=== PATIENT | female | born 1995 | race Hispanic/Latino ===

== ENCOUNTER 2018-04-09 00:01 | Emergency (ER) | payer OTHER ==
[2018-04-09 00:04] VITALS: O2SAT 100
[2018-04-09 00:07] VITALS: TEMP 97.5
[2018-04-09] MEDS ORDERED: Sodium Chloride 0.9% 1,000 ML IV STA (00:18)
--- NOTE | 2018-04-09 00:27 | ED PDOC ---
Arrival/HPI - General Historian: Patient - History of Present Illness Narrative History of Present Illness (Text): 04/09/18 00:38 22 y/o female with PMH of anxiety and anemia who presents to the ED with parents c/o palpitations and shortness of breath x 2 hours. Pt was resting at home after dinner when she began to feel lightheaded and had visual changes with associated "heart racing" and shortness of breath. Pt states the symptoms became worse when she got in the car to come to the ED. She has had episodes like this before, but never this severe. She was seen by Dr. Barone a few days ago where bloodwork revealed anemia with hgb of 8.7 according to pt and was referred to hematology. Abisai also prescribed Klonopin and Prozac for anxiety, which she refuses to take. LMP middle of last month. No risk factors for PE/DVT. Pt currently complaining of lightheadedness and shaking. Denies fever, chills, chest pain, syncope, throat swelling, sore throat, rhinorrhea, abdominal pain, nausea, vomiting, diarrhea, dark stools, urinary symptoms. <Carlie Mcdermott - Last Filed: 04/09/18 01:57> <Judd Thornton - Last Filed: 04/09/18 04:09> - General Chief Complaint: Shortness Of Breath Time Seen by Provider: 04/09/18 00:05 Past Medical History - Provider Review Nursing Documentation Reviewed: Yes - Infectious Disease Hx of Infectious Diseases: None - Reproductive Menopause: No - Cardiac Hx Cardiac Disorders: No - Pulmonary Hx Respiratory Disorders: No - Neurological Hx Neurological Disorder: No - HEENT Hx HEENT Disorder: No - Renal Hx Renal Disorder: No - Endocrine/Metabolic Hx Endocrine Disorders: No - Hematological/Oncological Hx Blood Disorders: No - Integumentary Hx Dermatological Disorder: No - Musculoskeletal/Rheumatological Hx Musculoskeletal Disorders: No - Gastrointestinal Hx Gastrointestinal Disorders: No - Genitourinary/Gynecological Hx Genitourinary Disorders: No - Psychiatric Hx Psychophysiologic Disorder: No Hx Substance Use: No <Carlie Mcdermott - Last Filed: 04/09/18 01:57> Family/Social History - Physician Review Nursing Documentation Reviewed: Yes Family/Social History: No Known Family HX Smoking Status: Never Smoked Hx Alcohol Use: No Hx Substance Use: No <Carlie Mcdermott - Last Filed: 04/09/18 01:57> Allergies/Home Meds <Carlie Mcdermott - Last Filed: 04/09/18 01:57> <Judd Thornton - Last Filed: 04/09/18 04:09> Allergies/Adverse Reactions: Allergies No Known Allergies Allergy (Verified 04/09/18 00:08) Home Medications: Home Meds Medication Instructions Recorded Confirmed RX: No Known Home Med 04/09/18 04/09/18 Review of Systems - Physician Review All systems were reviewed & negative as marked: Yes - Review of Systems Constitutional: Normal. absent: Fevers Eyes: Vision Changes ENT: absent: Tinnitus, Voice Changes, Sore Throat, Rhinorrhea, Epistaxis, Sinus Congestion Respiratory: SOB. absent: Cough, Sputum, Wheezing Cardiovascular: Normal. absent: Chest Pain, Palpitations, Edema, Calf Pain, Syncope Gastrointestinal: Normal. absent: Abdominal Pain, Constipation, Diarrhea, Nausea, Vomiting, Appetite Changes Genitourinary Female: Normal. absent: Dysuria, Frequency, Vaginal Bleeding, Vaginal Discharge Musculoskeletal: Normal, Myalgias (paraspinal cervical). absent: Arthralgias, Back Pain, Neck Pain Skin: Normal. absent: Rash Neurological: Headache, Dizziness. absent: Focal Weakness, Gait Changes, Speech Changes, Facial Droop, Disequilibrium, Seizure Endocrine: absent: Diaphoresis Hemo/Lymphatic: absent: Adenopathy Psychiatric: Anxiety. absent: Suicidal Ideation <Carlie Mcdermott - Last Filed: 04/09/18 01:57> Physical Exam Vital Signs Reviewed: Yes Vital Signs Temp Pulse Resp BP Pulse Ox 04/09/18 00:07 89 04/09/18 00:04 97.5 F L 101 H 18 135/85 100 Temperature: Afebrile Blood Pressure: Normal Pulse: Tachycardic (anxiety) Respiratory Rate: Normal Appearance: Positive for: Well-Appearing, Non-Toxic, Comfortable Pain Distress: None Mental Status: Positive for: Alert and Oriented X 3, other (anxious) Finger Stick Blood Glucose: 107 - Systems Exam Head: Present: Atraumatic, Normocephalic Pupils: Present: PERRL Extroacular Muscles: Present: EOMI Conjunctiva: Present: Normal Mouth: Present: Moist Mucous Membranes Pharnyx: Present: Normal. No: ERYTHEMA, EXUDATE Neck: Present: Normal Range of Motion. No: MIDLINE TENDERNESS, Paraspinal Tenderness Respiratory/Chest: Present: Clear to Auscultation, Good Air Exchange. No: Re spiratory Distress, Accessory Muscle Use Cardiovascular: Present: Regular Rate and Rhythm, Normal S1, S2, Peripheal Pulses Present. No: Murmurs Abdomen: No: Tenderness, Distention, Peritoneal Signs Back: Present: Normal Inspection. No: Midline Tenderness, Paraspinal Tenderness Upper Extremity: Present: Normal Inspection, Normal ROM, NORMAL PULSES, Capillary Refill < 2s. No: Cyanosis, Edema Lower Extremity: Present: Normal Inspection, NORMAL PULSES, Normal ROM, Capilla ry Refill < 2 s. No: Edema Neurological: Present: GCS=15, CN II-XII Intact, Speech Normal, Motor Func Grossly Intact, Normal Sensory Function, Normal Cerebellar Funct, Gait Normal, Memory Normal Skin: Present: Warm, Dry, Normal Color. No: Rashes Lymphatic: No: Cervical Adenopathy Psychiatric: Present: Alert, Oriented x 3, Anxious <Carlie Mcdermott - Last Filed: 04/09/18 01:57> Vital Signs Temp Pulse Resp BP Pulse Ox 04/09/18 02:03 82 16 108/51 L 100 04/09/18 00:10 18 100 04/09/18 00:07 89 04/09/18 00:04 97.5 F L 101 H 18 135/85 100 <Judd Thornton - Last Filed: 04/09/18 04:09> Medical Decision Making ED Course and Treatment: 04/09/18 00:27 22 y/o female with PMH of anxiety and anemia who presents to the ED with parents c/o palpitations and shortness of breath x 2 hours. Pt was resting at home after dinner when she began to feel lightheaded and had visual changes with associated "heart racing" and shortness of breath. Pt states the symptoms became worse when she got in the car to come to the ED. She has had episodes like this before, but never this severe. She was seen by Dr. Barone a few days ago where bloodwork revealed anemia with hgb of 8.7 according to pt and was referred to hematology. Abisai also prescribed Klonopin and Prozac for anxiety, which she refuses to take. LMP middle of last month. No risk factors for PE/DVT. Pt currently complaining of lightheadedness and shaking. Denies fever, chills, chest pain, syncope, cough, throat swelling, sore throat, rhinorrhea, abdominal pain, nausea, dark stools, vomiting, urinary symptoms, calf pain, calf swelling, vaginal bleeding. Physical exam: tachycardia. visibly anxious. Normal cardiac, pulm, abdominal, neuro exams. plan -ekg -cxr -cbc, cmp, troponin -UA -IVF -0.25mg PO xanax 04/09/18 00:45 Pt continues to feel anxious immediately after xanax. Mother extremely worried. Told pt to let the medicine work while we do her bloodwork. turned on tv, gave pt a juice. will get glucose fingerstick - 107 04/09/18 01:[address] Thornton: rate 103, sinus tachycardia, no t wave inversions or st elevations 04/09/18 01:14 CBC: hgb 8.5, hct 30.5 -microcytic anemia CMP: wnl CXR: read by me and Dr. Thornton - no acute process 04/09/18 01:57 Pt feels much better, vital signs stable. Pt ambulated to bathroom without difficulty Dr. Thornton recommends pt discharge Impression: Microcytic anemia, vasovagal episode Plan: Increase fluid intake to stay hydrated Continue to take vitamins Followup with tilting saw operator within 2 days Followup with primary doctor within 2 days Return if symptoms persist or worsen Plan discussed with pt and family who agree and understand. Pt comfortable with discharge home. Results and EKG printed for pt. Re-evaluation Time: 01:14 Reassessment Condition: Unchanged - Lab Interpretations I have reviewed the lab results: Yes Interpretation: Abnormal lab values - RAD Interpretation Radiology Orders: 04/09/18 00:17 CHEST PORTABLE [RAD] Stat House Piping Inspector: ED Physician - EKG Interpretation Interpreted by ED Physician: Yes (Rate 103, sinus tachycardia, no t wave inversions) Type: 12 lead EKG - Medication Orders Current Medication Orders: Alprazolam (Xanax) 0.25 mg PO STAT STA; Protocol Stop: 04/09/18 00:22 Sodium Chloride (Sodium Chloride 0.9%) 1,000 mls @ 999 mls/hr IV .Q1H1M STA Stop: 04/09/18 01:18 <Carlie Mcdermott - Last Filed: 04/09/18 01:57> - Lab Interpretations Lab Results: 04/09/18 00:25 04/09/18 00:25 Lab Results 04/09/18 01:03: POC Glucose (mg/dL) 107 04/09/18 00:25: Sodium 139, Potassium 3.9, Chloride 104, Carbon Dioxide 26, Anion Gap 14, BUN 10, Creatinine 0.7, Est GFR ( Amer) > 60, Est GFR (Non- Af Amer) > 60, Random Glucose 104, Calcium 9.4, Total Bilirubin 0.3, AST 24, ALT 11, Alkaline Phosphatase 59, Troponin I < 0.01, Total Protein 8.4 H, Albumin 4.6, Globulin 3.8, Albumin/Globulin Ratio 1.2 04/09/18 00:25: WBC 6.6, RBC 4.85, Hgb 8.5 L, Hct 30.5 L, MCV 62.9 L, MCH 17.5 L , MCHC 27.9 L, RDW 19.3 H, Plt Count 239, Gran % 39.4 L, Lymph % (Auto) 50.1 H, [place] % (Auto) 8.3 H, Eos % (Auto) 1.7, Baso % (Auto) 0.5, Gran # 2.61, Lymph # (Auto) 3.3, [place] # (Auto) 0.6, Eos # (Auto) 0.1, Baso # (Auto) 0.03 - RAD Interpretation Radiology Orders: 04/09/18 00:17 CHEST PORTABLE [RAD] Stat - Medication Orders Current Medication Orders: Discontinued Medications Alprazolam (Xanax) 0.25 mg PO STAT STA; Protocol Stop: 04/09/18 00:22 Last Admin: 04/09/18 00:38 Dose: 0.25 mg Sodium Chloride (Sodium Chloride 0.9%) 1,000 mls @ 999 mls/hr IV .Q1H1M STA Stop: 04/09/18 01:18 Last Admin: 04/09/18 00:38 Dose: 999 mls/hr eMAR Start Stop Document 04/09/18 00:38 JOL (Rec: 04/09/18 00:38 [facility] [id number] Intravenous Solution Start Date 04/09/18 Start Time 00:38 <HillaryJudd - Last Filed: 04/09/18 04:09> Wells Criteria for PE - Wells Criteria for Pulmonary Embolism Clinical Signs and Symptoms of DVT: No P.E is #1 Diagnosis, or Equally Likely: No Heart Rate >100: Yes Immobilization at least 3 days;Surgery previous 4 weeks: No Previous, objectively diagnosed PE or DVT: No Hemoptysis: No Malignancy w/treatment within 6 months, or palliative: No Total Score: 1.5 <LulabradCarlie - Last Filed: 04/09/18 01:57> - PA / COVERSTITCH ELASTIC ATTACHER / Resident Statement MD/DO has reviewed & agrees with the documentation as recorded. <HillaryJudd - Last Filed: 04/09/18 04:09> Disposition/Present on Arrival - Present on Arrival Any Indicators Present on Arrival: No History of DVT/PE: No History of Uncontrolled Diabetes: No Urinary Catheter: No History of Decub. Ulcer: No History Surgical Site Infection Following: None - Disposition Have Diagnosis and Disposition been Completed?: Yes Disposition Time: 02:00 Patient Plan: Discharge <Carlie Mcdermott - Last Filed: 04/09/18 01:57> <HillaryJudd - Last Filed: 04/09/18 04:09> - Disposition Diagnosis: Microcytic anemia, Vasovagal episode, Anxiety Disposition: HOME/ ROUTINE Condition: IMPROVED Discharge Instructions (ExitCare): Anemia Caused by Low Iron Additional Instructions: Increase fluid intake to stay hydrated Continue to take vitamins Followup with tilting saw operator within 2 days Followup with primary doctor within 2 days Return if symptoms persist or worsen Referrals: Tr Barone MD [Primary Care Provider] - Follow up with primary Forms: [employer] [facility] (Urdu), SCHOOL NOTE
[2018-04-09 00:55] LABS: BASO # 0.03 K/mm3 (0.0-2.0); BASO % 0.5 % (0.0-3.0); EOS # 0.1 (0.0-0.7); EOS % 1.7 % (1.5-5.0); GRAN # 2.61 (1.4-6.5); GRAN % 39.4 % (50.0-68.0); HEMOGLOBIN 8.5 g/dL (12.0-16.0); LYMPH # 3.3 (1.2-3.4); LYMPH % 50.1 % (22.0-35.0); MEAN CELL VOLUME 62.9 fl (80.0-105.0); MEAN CORPUSCULAR HEMOGLOBIN 17.5 pg (25.0-35.0); MEAN CORPUSCULAR HGB CONC 27.9 g/dl (31.0-37.0); MONO # 0.6 (0.1-0.6); MONO % 8.3 % (1.0-6.0); PLATELET COUNT 239 10^3/uL (120.0-450.0); RBC 4.85 10^6/uL (3.5-6.1); RED CELL DISTRIBUTION WIDTH 19.3 % (11.5-14.5); WHITE BLOOD COUNT 6.6 10^3/ul (4.5-11.0)
[2018-04-09 01:02] LABS: ALB/GLOB RATIO 1.2 (1.1-1.8); ALBUMIN 4.6 g/dL (3.0-4.8); ALT/SGPT 11 U/L (7-56); AST/SGOT 24 U/L (14-36); BLOOD UREA NITROGEN 10 mg/dL (7-21); CALCIUM 9.4 mg/dL (8.4-10.5); GFR NON-AFRICAN AMERICAN > 60
[2018-04-09 01:13] LABS: TROPONIN I < 0.01 ng/mL
[2018-04-09 02:03] VITALS: BP 108/51; PULSE 82; RESP 16
--- NOTE | 2018-04-09 07:55 | RAD ---
Date of service: 04/09/2018 HISTORY: shortness of breath COMPARISON: No prior. FINDINGS: LUNGS: No active pulmonary disease. PLEURA: No significant pleural effusion identified, no pneumothorax apparent. CARDIOVASCULAR: Normal. OSSEOUS STRUCTURES: No significant abnormalities. VISUALIZED UPPER ABDOMEN: Normal. OTHER FINDINGS: None. IMPRESSION: No acute cardiopulmonary disease appreciated.
--- NOTE | 2018-04-09 10:20 | CARD ---
APPROVED REPORT Date of service: 04/09/2018 EKG Measurement Heart [id number] <Conclusion> Sinus tachycardia Nonspecific T wave abnormality RVCD Prolonged QTc
== END 2018-04-09 02:33 | disposition home or self-care (01) ==
LOC: ED 00:01
DX: D50.9 Iron deficiency anemia, unspecified (principal); R55 Syncope and collapse; F41.9 Anxiety disorder, unspecified
CPT/HCPCS: 71045; 80053; 82948; 84484; 85025; 93005; 99284; J7030

== ENCOUNTER 2018-04-15 17:13 | Emergency (ER) | payer OTHER ==
[2018-04-15 17:25] VITALS: O2SAT 100; BMI 15.9
[2018-04-15] MEDS ORDERED: Sodium Chloride 0.9% 1,000 ML IV STA (17:41)
[2018-04-15] MEDS ORDERED: Albuterol-Ipratrop 3 mg / 0.5 (3 ml) UD IH STA (17:42)
--- NOTE | 2018-04-15 18:37 | ED PDOC ---
Arrival/HPI - General Chief Complaint: Shortness Of Breath Time Seen by Provider: 04/15/18 17:31 Historian: Patient - History of Present Illness Narrative History of Present Illness (Text): 22 y/o female with PMH of anxiety and anemia who presents to the ED with parents c/o palpitations since today. Patient states she was at Dr. Ramires's office when she experienced a sudden onset of palpitations and fast heart rate associated with chest discomfort. Patient states feeling "impending sense of doom" with unchanged symptoms when her PMD advised patient to report to the Emergency department immediately for further cardiac evaluation. Of note, she was recently seen in the Emergency department on 04/09/18 for similar complaints, when patient received an extensive cardiac work-up with unremarkable findings. She denies following up with a warp picker regarding the symptoms. Additionally, patient states she was diagnosed with the flu last week. Patient informs intermittent chills but denies any fever, nausea, vomiting, diarrhea, abdominal pain, shortness of breath, syncope, dizziness, headache, dysuria, hematuria, back pain, neck pain, or any other complaints. PMD: Dr. Ramires Time/Duration: 4-6 hours Symptom Onset: Gradual Symptom Course: Unchanged Activities at Onset: Light Context: Other (Referred by Dr. Ramires) Past Medical History - Provider Review Nursing Documentation Reviewed: Yes - Travel History Have you recently traveled outside [place] w/in the past 3 mons?: No - Infectious Disease Hx of Infectious Diseases: None - Cardiac Hx Cardiac Disorders: No - Pulmonary Hx Respiratory Disorders: No - Neurological Hx Neurological Disorder: No - HEENT Hx HEENT Disorder: No - Renal Hx Renal Disorder: No - Endocrine/Metabolic Hx Endocrine Disorders: No - Hematological/Oncological Hx Blood Disorders: No - Integumentary Hx Dermatological Disorder: No - Musculoskeletal/Rheumatological Hx Musculoskeletal Disorders: No - Gastrointestinal Hx Gastrointestinal Disorders: No - Genitourinary/Gynecological Hx Genitourinary Disorders: No - Psychiatric Hx Psychophysiologic Disorder: Yes Hx Anxiety: Yes Hx Substance Use: No Family/Social History - Physician Review Nursing Documentation Reviewed: Yes Family/Social History: No Known Family HX Smoking Status: Never Smoked Hx Alcohol Use: No Hx Substance Use: No Allergies/Home Meds Allergies/Adverse Reactions: Allergies No Known Allergies Allergy (Verified 04/15/18 17:24) Home Medications: Home Meds Medication Instructions Recorded Confirmed No Known Home Med 04/09/18 04/15/18 Review of Systems - Physician Review All systems were reviewed & negative as marked: Yes - Review of Systems Constitutional: absent: Fevers Respiratory: absent: SOB, Cough Cardiovascular: Chest Pain, Palpitations. absent: Syncope Gastrointestinal: absent: Abdominal Pain, Diarrhea, Nausea, Vomiting Genitourinary Female: absent: Dysuria, Hematuria, Urine Output Changes Musculoskeletal: absent: Back Pain, Neck Pain Neurological: absent: Headache, Dizziness Physical Exam Vital Signs Reviewed: Yes Vital Signs Temp Pulse Resp BP Pulse Ox 04/15/18 17:25 97.8 F 84 19 133/58 L 100 Temperature: Afebrile Blood Pressure: Normal Pulse: Regular Respiratory Rate: Normal Appearance: Positive for: Well-Appearing, Non-Toxic, Uncomfortable, Other (Tremulous). No: Comfortable Pain Distress: None Mental Status: Positive for: Alert and Oriented X 3 - Systems Exam Head: Present: Atraumatic, Normocephalic Pupils: Present: PERRL Extroacular Muscles: Present: EOMI Conjunctiva: Present: Normal Mouth: Present: Moist Mucous Membranes Neck: Present: Normal Range of Motion Respiratory/Chest: Present: Clear to Auscultation, Good Air Exchange. No: Respiratory Distress, Accessory Muscle Use Cardiovascular: Present: Regular Rate and Rhythm, Normal S1, S2. No: Murmurs Abdomen: No: Tenderness, Distention, Peritoneal Signs Back: Present: Normal Inspection Upper Extremity: Present: Normal Inspection. No: Cyanosis, Edema Lower Extremity: Present: Normal Inspection. No: Edema Neurological: Present: GCS=15, CN II-XII Intact, Speech Normal Skin: Present: Warm, Dry, Normal Color. No: Rashes Psychiatric: Present: Alert, Oriented x 3, Normal Insight, Normal Concentration Medical Decision Making ED Course and Treatment: 04/15/18 17:40 Impression: 22 year old female presents to the Emergency department complaining of palpitations and chest discomfort. Differential Diagnosis included but are not limited to: Anxiety Panic attack costochondritis pericarditis/ myocarditis Plan: -- Labs -- Chest X-ray -- Albuterol -- IV Fluids -- Xanax -- Urinalysis -- Reassess and disposition Prior Visits: Notes and results from previous visits were reviewed. Patient was recently seen in the ED opn 04/09/2018 for similar complaint where she was discharged and advised to follow up. Progress Notes: 04/15/18 18:18 Patient signed out to Dr. Stuart who will resume the care of the patient pending labs. - RAD Interpretation Radiology Orders: 04/15/18 17:41 CHEST PORTABLE [RAD] Stat - Medication Orders Current Medication Orders: Sodium Chloride (Sodium Chloride 0.9%) 1,000 mls @ 999 mls/hr IV .Q1H1M STA Stop: 04/15/18 18:41 Discontinued Medications Albuterol/Ipratropium (Duoneb 3 Mg/0.5 Mg (3 Ml) Ud) 3 ml IH STAT STA Stop: 04/15/18 17:43 Alprazolam (Xanax) 0.25 mg PO STAT STA; Protocol Stop: 04/15/18 17:42 - Scribe Statement The provider has reviewed the documentation as recorded by the Scribe Marco Johnson. All medical record entries made by the Scribe were at my direction and personally dictated by me. I have reviewed the chart and agree that the record accurately reflects my personal performance of the history, physical exam, medical decision making, and the department course for this patient. I have also personally directed, reviewed, and agree with the discharge instructions and disposition. Disposition/Present on Arrival - Present on Arrival Any Indicators Present on Arrival: No History of DVT/PE: No History of Uncontrolled Diabetes: No Urinary Catheter: No History of Decub. Ulcer: No History Surgical Site Infection Following: None - Disposition Have Diagnosis and Disposition been Completed?: Yes Diagnosis: Palpitations Disposition: HOME/ ROUTINE Disposition Time: 18:00 Condition: GOOD Discharge Instructions (ExitCare): Palpitations Additional Instructions: Follow up with your primary care physician, as well as your warp picker JOSSELINE MARY, thank you for letting us take care of you today. Your provider was Jamir Stuart and you were treated for DIZZINESS/SOB. The emergency medical care you received today was directed at your acute symptoms. If you were prescribed any medication, please fill it and take as directed. It may take several days for your symptoms to resolve. Return to the Emergency Department if your symptoms worsen, do not improve, or if you have any other problems. Please contact your doctor or call one of the physicians/clinics you have been referred to that are listed on the Patient Visit Information form that is included in your discharge packet. Bring any paperwork you were given at discharge with you along with any medications you are taking to your follow up visit. Our treatment cannot replace ongoing medical care by a primary care provider outside of the emergency department. Thank you for allowing the [facility] team to be part of your care today. If you had an X-Ray or CT scan: A Radiologist will review the ED reading if any change in treatment is needed we will contact you. If you had a blood, urine, or wound culture: It will take several days for the results, if any change in treatment is needed we will contact you. If you had an STI test: It will take 48 hours for the results. Please call after 1 week if you have not heard back. Referrals: Vivek Ramires MD [Primary Care Provider] - Follow up with primary Hossein Min MD [Staff Provider] - Follow up with primary Forms: [employer] (Kyrgyz)
[2018-04-15 18:59] VITALS: RESP 18
--- NOTE | 2018-04-15 19:25 | ED PDOC ---
Physical Exam Vital Signs Reviewed: Yes Vital Signs Temp Pulse Resp BP Pulse Ox 04/15/18 18:58 18 100 04/15/18 17:25 97.8 F 84 19 133/58 L 100 Temperature: Afebrile Blood Pressure: Normal Pulse: Regular Respiratory Rate: Normal Appearance: Positive for: Well-Appearing, Non-Toxic, Comfortable Pain Distress: None Mental Status: Positive for: Alert and Oriented X 3 - Systems Exam Head: Present: Atraumatic, Normocephalic Pupils: Present: PERRL Extroacular Muscles: Present: EOMI Conjunctiva: Present: Normal Mouth: Present: Moist Mucous Membranes Neck: Present: Normal Range of Motion Respiratory/Chest: Present: Clear to Auscultation, Good Air Exchange. No: Respiratory Distress, Accessory Muscle Use Cardiovascular: Present: Regular Rate and Rhythm, Normal S1, S2. No: Murmurs Abdomen: No: Tenderness, Distention, Peritoneal Signs Back: Present: Normal Inspection Upper Extremity: Present: Normal Inspection. No: Cyanosis, Edema Lower Extremity: Present: Normal Inspection. No: Edema Neurological: Present: GCS=15, CN II-XII Intact, Speech Normal Skin: Present: Warm, Dry, Normal Color. No: Rashes Psychiatric: Present: Alert, Oriented x 3, Normal Insight, Normal Concentration Medical Decision Making ED Course and Treatment: 04/15/18 19:10 Cased endorsed to me by Dr. Mccormack for pending imaging results, reassessment and final disposition. Patient is a 22 year old female, who presented to the Emergency department earlier today complaining of palpitations. Patient is currently resting in bed in no acute distress. Patient denies any new medical complaints. 04/15/18 23:12 CT angio negative Anemic, previously anemic. Likely needs outpt follow up. No dark or bloody stool. No heavy menstrual period per pt. Pending TSH 2330 TSH unremarkable pt notes she does not have palpitations, does not feel weak and is at baseline. Neuro exam remains unremarkable. Pt notes that she has been diagnosed with anemia in the past and that she was told to take iron pills but does not want to take them because they make her constipated. She notes she is also a vegetarian. Endorsed to patient to follow up w/ PMD in regards to anemia as well as design director in regards to palpitations. She endorsed understanding. - RAD Interpretation Radiology Orders: 04/15/18 17:41 CHEST PORTABLE [RAD] Stat - Medication Orders Current Medication Orders: Discontinued Medications Albuterol/Ipratropium (Duoneb 3 Mg/0.5 Mg (3 Ml) Ud) 3 ml IH STAT STA Stop: 04/15/18 17:43 Last Admin: 04/15/18 19:12 Dose: 3 ml Alprazolam (Xanax) 0.25 mg PO STAT STA; Protocol Stop: 04/15/18 17:42 Last Admin: 04/15/18 19:12 Dose: 0.25 mg Sodium Chloride (Sodium Chloride 0.9%) 1,000 mls @ 999 mls/hr IV .Q1H1M STA Stop: 04/15/18 18:41 Last Admin: 04/15/18 19:12 Dose: 999 mls/hr eMAR Start Stop Document 04/15/18 19:12 GMD (Rec: 04/15/18 19:13 GMD [id number]) Intravenous Solution Start Date 04/15/18 Start Time 19:12 End Date 04/15/18 End time 20:13 Total Infusion Time 61 - Scribe Statement The provider has reviewed the documentation as recorded by the Scribe Marco Johnson. Provider Scribe Attestation: All medical record entries made by the Scribe were at my direction and personally dictated by me. I have reviewed the chart and agree that the record accurately reflects my personal performance of the history, physical exam, medical decision making, and the department course for this patient. I have also personally directed, reviewed, and agree with the discharge instructions and disposition. Disposition/Present on Arrival - Present on Arrival Any Indicators Present on Arrival: Yes History of DVT/PE: No History of Uncontrolled Diabetes: No Urinary Catheter: No History of Decub. Ulcer: No History Surgical Site Infection Following: None - Disposition Have Diagnosis and Disposition been Completed?: Yes Diagnosis: Palpitations Disposition: HOME/ ROUTINE Disposition Time: 23:45 Patient Problems: Current Active Problems Problem Status Onset Palpitations Acute Condition: GOOD Discharge Instructions (ExitCare): Palpitations Additional Instructions: Follow up with your primary care physician, as well as your design director JOSSELINE MARY, thank you for letting us take care of you today. Your provider was Jamir Stuart and you were treated for DIZZINESS/SOB. The emergency medical care you received today was directed at your acute symptoms. If you were prescribed any medication, please fill it and take as directed. It may take several days for your symptoms to resolve. Return to the Emergency Department if your symptoms worsen, do not improve, or if you have any other problems. Please contact your doctor or call one of the physicians/clinics you have been referred to that are listed on the Patient Visit Information form that is included in your discharge packet. Bring any paperwork you were given at discharge with you along with any medications you are taking to your follow up visit. Our treatment cannot replace ongoing medical care by a primary care provider outside of the emergency department. Thank you for allowing the [facility] team to be part of your care today. If you had an X-Ray or CT scan: A Radiologist will review the ED reading if any change in treatment is needed we will contact you. If you had a blood, urine, or wound culture: It will take several days for the results, if any change in treatment is needed we will contact you. If you had an STI test: It will take 48 hours for the results. Please call after 1 week if you have not heard back. Referrals: Vivek Ramires MD [Primary Care Provider] - Follow up with primary Hossein Min MD [Staff Provider] - Follow up with primary Forms: [employer] (Barbadian)
[2018-04-15 19:37] LABS: BASO # 0.02 K/mm3 (0.0-2.0); BASO % 0.2 % (0.0-3.0); EOS # 0.1 (0.0-0.7); EOS % 0.7 % (1.5-5.0); GRAN # 7.12 (1.4-6.5); GRAN % 77.3 % (50.0-68.0); HEMOGLOBIN 8.8 g/dL (12.0-16.0); LYMPH # 1.5 (1.2-3.4); LYMPH % 16.2 % (22.0-35.0); MEAN CELL VOLUME 62.7 fl (80.0-105.0); MEAN CORPUSCULAR HEMOGLOBIN 17.6 pg (25.0-35.0); MONO # 0.5 (0.1-0.6); MONO % 5.6 % (1.0-6.0); PLATELET COUNT 215 10^3/uL (120.0-450.0); RBC 5.01 10^6/uL (3.5-6.1); RED CELL DISTRIBUTION WIDTH 19.4 % (11.5-14.5); WHITE BLOOD COUNT 9.2 10^3/ul (4.5-11.0)
[2018-04-15 19:47] LABS: ALB/GLOB RATIO 1.2 (1.1-1.8); ALBUMIN 4.6 g/dL (3.0-4.8); ALT/SGPT 24 U/L (7-56); AST/SGOT 28 U/L (14-36); BLOOD UREA NITROGEN 10 mg/dL (7-21); CALCIUM 9.5 mg/dL (8.4-10.5); GFR NON-AFRICAN AMERICAN > 60
[2018-04-15 19:53] LABS: URINE BILIRUBIN NEGATIVE (NEGATIVE); URINE BLOOD NEGATIVE (NEGATIVE); URINE GLUCOSE (UA) NEGATIVE (NEGATIVE); URINE LEUKOCYTE ESTERASE NEGATIVE Leu/uL (NEGATIVE); URINE PROTEIN NEGATIVE mg/dL (<30 mg/dL); URINE UROBILINOGEN 0.2 E.U./dL (<1 E.U./dL)
[2018-04-15 19:55] LABS: TROPONIN I < 0.01 ng/mL
[2018-04-15 19:56] LABS: URINE APPEARANCE CLEAR (CLEAR); URINE COLOR YELLOW (YELLOW)
[2018-04-15] MEDS ORDERED: Iohexol 350 MG/100 ML VIAL ONE (20:56)
[2018-04-15 23:48] VITALS: BP 140/62; PULSE 82; TEMP 98
--- NOTE | 2018-04-16 07:17 | CT ---
Date of service: 04/15/2018 CTA chest PE protocol Indication: elevated dimer, dizzy/sob Technique: Contiguous axial images were obtained through the chest with intravenous contrast enhancement. Sagittal and coronal reconstructions were generated and reviewed. This CT exam was performed using 1 or more of the following dose reduction techniques: Automated exposure control, adjustment of the MAA and/or kV according to patient size, and/or use of iterative reconstruction technique. IV contrast: 95 mL Omnipaque 350 IV Radiation dose (DLP): 122.90 MGy-cm. Comparison: Chest x-ray performed 04/15/20 Findings: Examination limited by motion/respiratory artifact. Visualized portions of the inferior thyroid gland appear unremarkable. The mediastinal and hilar vascular structures appear within normal limits. The heart appears within normal limits of size. No large central or segmental pulmonary embolus evident. No focal consolidation. No pleural effusion. No pneumothorax. Limited visualized portions of the upper abdomen appear grossly unremarkable. No acute osseous abnormality is detected. Impression: No large central or segmental pulmonary embolus identified. Examination limited by motion/respiratory artifact.
--- NOTE | 2018-04-16 09:40 | RAD ---
Date of service: 04/15/2018 HISTORY: sob COMPARISON: 04/09/2018 FINDINGS: LUNGS: No active pulmonary disease. PLEURA: No significant pleural effusion identified, no pneumothorax apparent. CARDIOVASCULAR: Normal. OSSEOUS STRUCTURES: No significant abnormalities. VISUALIZED UPPER ABDOMEN: Normal. OTHER FINDINGS: None. IMPRESSION: No active disease.
== END 2018-04-16 00:11 | disposition home or self-care (01) ==
LOC: ED 17:13
DX: R00.2 Palpitations (principal)
CPT/HCPCS: 71045; 71275; 80053; 81003; 83735; 84443; 84484; 85025; 85378; 96360; 99285; J7030; Q9967

== ENCOUNTER 2018-06-19 03:59 | Emergency (ER) | payer OTHER ==
[2018-06-19 03:59] VITALS: BMI 15.9
[2018-06-19 04:13] VITALS: RESP 18; TEMP 98
[2018-06-19] MEDS ORDERED: Sodium Chloride 0.9% 1,000 ML IV STA (04:15)
--- NOTE | 2018-06-19 04:19 | ED PDOC ---
Arrival/HPI - General Chief Complaint: GI Problem Time Seen by Provider: 06/19/18 04:00 Historian: Patient - History of Present Illness Narrative History of Present Illness (Text): 06/19/18 04:15 22 year old female, with no significant past medical history, presents to the emergency department accompanied by parents complaining of nausea and multiple episodes of vomiting that began tonight. Patient states it began after taking her control which she does not take regularly. The patient denies any fever, chills, chest pain, shortness of breath, abdominal pain, diarrhea, urinary symptoms, back pain, neck pain, headache, dizziness, or any other complaints. PMD: Dr. Darren Ricci Time/Duration: Other (tonight) Symptom Onset: Gradual Symptom Course: Unchanged Activities at Onset: Light Context: Home Past Medical History - Provider Review Nursing Documentation Reviewed: Yes - Infectious Disease Hx of Infectious Diseases: None - Cardiac Hx Cardiac Disorders: No - Pulmonary Hx Respiratory Disorders: No - Neurological Hx Neurological Disorder: No - HEENT Hx HEENT Disorder: No - Renal Hx Renal Disorder: No - Endocrine/Metabolic Hx Endocrine Disorders: No - Hematological/Oncological Hx Blood Disorders: No - Integumentary Hx Dermatological Disorder: No - Musculoskeletal/Rheumatological Hx Musculoskeletal Disorders: No - Gastrointestinal Hx Gastrointestinal Disorders: No - Genitourinary/Gynecological Hx Genitourinary Disorders: No - Psychiatric Hx Psychophysiologic Disorder: Yes Hx Anxiety: Yes Hx Substance Use: No Family/Social History - Physician Review Nursing Documentation Reviewed: Yes Family/Social History: No Known Family HX Smoking Status: Never Smoked Hx Alcohol Use: No Hx Substance Use: No Allergies/Home Meds Allergies/Adverse Reactions: Allergies No Known Allergies Allergy (Verified 04/15/18 17:24) Home Medications: Home Meds Medication Instructions Recorded Confirmed RX: No Known Home Med 04/09/18 06/19/18 Review of Systems - Physician Review All systems were reviewed & negative as marked: Yes - Review of Systems Constitutional: absent: Fevers, Other (chills) Respiratory: absent: SOB Cardiovascular: absent: Chest Pain Gastrointestinal: Nausea, Vomiting. absent: Abdominal Pain, Diarrhea Genitourinary Female: absent: Dysuria, Frequency, Hematuria Musculoskeletal: absent: Back Pain, Neck Pain Neurological: absent: Headache, Dizziness Physical Exam Vital Signs Reviewed: Yes Vital Signs Temp Pulse Resp BP Pulse Ox 06/19/18 04:10 98 F 108 H 18 116/74 99 Temperature: Afebrile Blood Pressure: Normal Pulse: Tachycardic Respiratory Rate: Normal Appearance: Positive for: Well-Appearing, Non-Toxic, Comfortable Pain Distress: None Mental Status: Positive for: Alert and Oriented X 3 - Systems Exam Head: Present: Atraumatic, Normocephalic Pupils: Present: PERRL Extroacular Muscles: Present: EOMI Conjunctiva: Present: Normal Mouth: Present: Moist Mucous Membranes Neck: Present: Normal Range of Motion Respiratory/Chest: Present: Clear to Auscultation, Good Air Exchange. No: Respiratory Distress, Accessory Muscle Use Cardiovascular: Present: Regular Rate and Rhythm, Normal S1, S2. No: Murmurs Abdomen: No: Tenderness, Distention, Peritoneal Signs Back: Present: Normal Inspection Upper Extremity: Present: Normal Inspection. No: Cyanosis, Edema Lower Extremity: Present: Normal Inspection. No: Edema Neurological: Present: GCS=15, CN II-XII Intact, Speech Normal Skin: Present: Warm, Dry, Normal Color. No: Rashes Psychiatric: Present: Alert, Oriented x 3, Normal Insight, Normal Concentration Medical Decision Making ED Course and Treatment: 06/19/18 04:16 Impression: 22 year old female presents complaining of nausea and multiple episodes of vomiting that began tonight. Plan: -- Labs -- IV Fluids, Zofran -- HCG, Qualitative urine -- Urinalysis -- Reassess and disposition Progress Notes: 06/19/18 05:00 On reevaluation, patient states symptoms are improving, but is requesting additional medication. reglan dosed. pt reports "feeling dizzy" s/p reglan. obs in er with improving symptosm. abd soft through ed stay. pt anxious. family and pt decline further obs request to take pt home. labs at baseline. decline to provide ua in er. 06/19/18 05:49 On reevaluation the patient feels better and is in no acute distress. I have discussed the results and plan with the patient, who expresses understanding. Patient given the opportunity to ask question, all questions were answered and there is agreement with the plan to discharge. Patient is stable for discharge. Patient was instructed to follow up with physician/clinic in 1-2 days or return if symptoms persist/worsen or new concerning symptoms arise.. 06/19/18 06:42 - Lab Interpretations I have reviewed the lab results: Yes - Scribe Statement The provider has reviewed the documentation as recorded by the [place] Provider Wongibe Attestation: All medical record entries made by the Scribe were at my direction and personally dictated by me. I have reviewed the chart and agree that the record accurately reflects my personal performance of the history, physical exam, medical decision making, and the department course for this patient. I have also personally directed, reviewed, and agree with the discharge instructions and disposition. Disposition/Present on Arrival - Present on Arrival Any Indicators Present on Arrival: No History of DVT/PE: No History of Uncontrolled Diabetes: No Urinary Catheter: No History of Decub. Ulcer: No History Surgical Site Infection Following: None - Disposition Have Diagnosis and Disposition been Completed?: Yes Diagnosis: Vomiting Disposition: HOME/ ROUTINE Disposition Time: 05:00 Condition: STABLE Discharge Instructions (ExitCare): Anxiety, Adult (DC), Nausea and Vomiting, Adult Additional Instructions: please follow up with your doctor. please see specialist. Referrals: [facility] [Outside] - Follow up with primary [facility] [Outside] - Follow up with primary [facility] [Outside] - Follow up with primary [facility] [Outside] - Follow up with primary Forms: [facility] (Irish)
[2018-06-19 04:42] LABS: ALB/GLOB RATIO 1.2 (1.1-1.8); ALBUMIN 4.3 g/dL (3.0-4.8); ALT/SGPT 18 U/L (7-56); AST/SGOT 25 U/L (14-36); BLOOD UREA NITROGEN 13 mg/dL (7-21); CALCIUM 8.9 mg/dL (8.4-10.5); GFR NON-AFRICAN AMERICAN > 60; LIPASE 89 U/L (23-300)
[2018-06-19 04:49] LABS: BASO # 0.02 K/mm3 (0.0-2.0); BASO % 0.3 % (0.0-3.0); EOS # 0.1 (0.0-0.7); EOS % 1.1 % (1.5-5.0); GRAN # 4.83 (1.4-6.5); GRAN % 60.6 % (50.0-68.0); HEMOGLOBIN 8.8 g/dL (12.0-16.0); LYMPH # 2.6 (1.2-3.4); LYMPH % 32.5 % (22.0-35.0); MEAN CELL VOLUME 63.5 fl (80.0-105.0); MEAN CORPUSCULAR HEMOGLOBIN 18.3 pg (25.0-35.0); MEAN CORPUSCULAR HGB CONC 28.9 g/dl (31.0-37.0); MONO # 0.4 (0.1-0.6); MONO % 5.5 % (1.0-6.0); PLATELET COUNT 238 10^3/uL (120.0-450.0); RED CELL DISTRIBUTION WIDTH 18.7 % (11.5-14.5)
[2018-06-19] MEDS ORDERED: DiphenhydrAMINE 50 mg/ml Inj IVP STA (04:54)
[2018-06-19 05:01] LABS: INR 1.25; PARTIAL THROMBOPLASTIN TIME 28.1 Seconds (25.1-36.5); PROTHROMBIN TIME 14.4 SECONDS (9.4-12.5)
[2018-06-19 06:31] VITALS: BP 115/75; PULSE 85; O2SAT 100
[2018-06-19 17:31] LABS: PH,URINE 7.5 (4.7-8.0); URINE BILIRUBIN NEGATIVE (NEGATIVE); URINE BLOOD LARGE (NEGATIVE); URINE GLUCOSE (UA) NEGATIVE (NEGATIVE); URINE LEUKOCYTE ESTERASE SMALL Leu/uL (NEGATIVE); URINE PROTEIN NEGATIVE mg/dL (<30 mg/dL); URINE UROBILINOGEN 0.2 E.U./dL (<1 E.U./dL)
[2018-06-19 17:33] LABS: URINE APPEARANCE SLIGHT-CLOUDY (CLEAR); URINE COLOR LIGHT YELLOW (YELLOW)
[2018-06-19 17:34] LABS: HCG,QUALITATIVE URINE NEGATIVE (NEGATIVE)
[2018-06-19 17:37] LABS: URINE BACTERIA NEG (NEG); URINE WBC 0 - 2 /hpf (0-6)
== END 2018-06-19 05:55 | disposition home or self-care (01) ==
LOC: ED 03:59
DX: R11.10 Vomiting, unspecified (principal)
CPT/HCPCS: 80053; 81001; 83690; 83735; 84702; 84703; 85025; 85610; 85730; 87086; 87181; 96374; 96375; 99283; J1200; J2405; J2765; J7030

== ENCOUNTER 2018-06-19 16:42 | Emergency (ER) | payer OTHER ==
[2018-06-19 16:42] VITALS: BMI 15.9
[2018-06-19 16:51] VITALS: TEMP 97.8
--- NOTE | 2018-06-19 17:10 | ED PDOC ---
Arrival/HPI - General Chief Complaint: Dizziness/Lightheaded Time Seen by Provider: 06/19/18 16:45 Historian: Patient - History of Present Illness Narrative History of Present Illness (Text): 06/19/18 17:04 A 22 year old female, whose past medical history includes anxiety and anemia, presents to the emergency department for further evaluation. Patient notes that she feels anxious. She states that after taking her control pill she began to feel palpitations, warm to her face, and cold hands and feet. The patient notes that she has experienced similar symptoms when she has gotten anxious in the past. The patient notes that she has irregular menstrual cycles. She states that she has been lightly bleeding for the past week and the bleeding has not been heavy or getting heavier. The patient notes that she was seen in the emergency department yesterday, and was given a medication that made her feel "heavy" and tired. She notes that she woke up today and was not feeling herself. The patient denies any recent travel, fevers, chills, headache, dizziness, chest pain, shortness of breath, dyspnea on exertion, cough, abdominal pain, nausea, vomiting, diarrhea, back pain, neck pain, urinary/bowel changes, or any other complaint. PMD: Dr. Margaret Ricci Time/Duration: Other (Yesterday) Symptom Onset: Sudden Symptom Course: Unchanged Activities at Onset: Rest, Light Context: Home Past Medical History - Provider Review Nursing Documentation Reviewed: Yes - Infectious Disease Hx of Infectious Diseases: None - Cardiac Hx Cardiac Disorders: No - Pulmonary Hx Respiratory Disorders: No - Neurological Hx Neurological Disorder: No - HEENT Hx HEENT Disorder: No - Renal Hx Renal Disorder: No - Endocrine/Metabolic Hx Endocrine Disorders: No - Hematological/Oncological Hx Blood Disorders: No - Integumentary Hx Dermatological Disorder: No - Musculoskeletal/Rheumatological Hx Musculoskeletal Disorders: No - Gastrointestinal Hx Gastrointestinal Disorders: No - Genitourinary/Gynecological Hx Genitourinary Disorders: No - Psychiatric Hx Psychophysiologic Disorder: Yes Hx Anxiety: Yes Hx Substance Use: No - Anesthesia Hx Anesthesia: No Hx Anesthesia Reactions: No Hx Malignant Hyperthermia: No Family/Social History - Physician Review Nursing Documentation Reviewed: Yes Family/Social History: No Known Family HX Smoking Status: Never Smoked Hx Alcohol Use: No Hx Substance Use: No Allergies/Home Meds Allergies/Adverse Reactions: Allergies No Known Allergies Allergy (Verified 04/15/18 17:24) Home Medications: Home Meds Medication Instructions Recorded Confirmed Clonazepam [Klonopin] 0.5 mg PO BID 06/19/18 06/19/18 Review of Systems - Physician Review All systems were reviewed & negative as marked: Yes - Review of Systems Constitutional: absent: Fevers Respiratory: absent: SOB, Cough Cardiovascular: Palpitations. absent: Chest Pain, MENG Gastrointestinal: absent: Abdominal Pain, Stool Changes, Diarrhea, Nausea, Vomiting Genitourinary Female: absent: Urine Output Changes Musculoskeletal: absent: Back Pain, Neck Pain Neurological: absent: Headache, Dizziness Physical Exam Vital Signs Reviewed: Yes Vital Signs Temp Pulse Resp BP Pulse Ox 06/19/18 16:58 97.8 F 106 H 18 123/80 99 06/19/18 16:42 97.8 F 106 H 20 123/80 100 Temperature: Afebrile Blood Pressure: Normal Pulse: Tachycardic Respiratory Rate: Normal Appearance: Positive for: Well-Appearing, Non-Toxic, Comfortable Pain Distress: None Mental Status: Positive for: Alert and Oriented X 3 - Systems Exam Head: Present: Atraumatic, Normocephalic Pupils: Present: PERRL Extroacular Muscles: Present: EOMI Conjunctiva: Present: Normal Mouth: Present: Moist Mucous Membranes Neck: Present: Normal Range of Motion Respiratory/Chest: Present: Clear to Auscultation, Good Air Exchange. No: Respiratory Distress, Accessory Muscle Use Cardiovascular: Present: Regular Rate and Rhythm, Normal S1, S2. No: Murmurs Abdomen: No: Tenderness, Distention, Peritoneal Signs Back: Present: Normal Inspection Upper Extremity: Present: Normal Inspection. No: Cyanosis, Edema Lower Extremity: Present: Normal Inspection. No: Edema Neurological: Present: GCS=15, CN II-XII Intact, Speech Normal, Motor Func Grossly Intact, Normal Sensory Function, Memory Normal Skin: Present: Warm, Dry, Normal Color. No: Rashes Psychiatric: Present: Alert, Oriented x 3, Normal Insight, Normal Concentration, Anxious (Patient appears anxious) Medical Decision Making ED Course and Treatment: 06/19/18 17:15 Impression: A 22 year old female presents to the emergency department for further evaluation of palpitations and anxiety Plan: -- EKG -- Ativan -- Reassess and disposition Prior Visits: Notes and results from previous visits were reviewed. Progress Notes: EKG: Ordered, reviewed, and independently interpreted the EKG. Rate : 108 BPM Rhythm : NSR Interpretation : No ST elevations. Otherwise normal 06/19/18 19:15 Pt feel better and is no longer anxious. Informed in depth that pt needs to take the anxiety medication. Pt informed to f/u with PMD and psychiatrist. - EKG Interpretation Interpreted by ED Physician: Yes Type: 12 lead EKG - Scribe Statement The provider has reviewed the documentation as recorded by the Wongibclaudia Silva Provider Scribe Attestation: All medical record entries made by the Scribe were at my direction and personally dictated by me. I have reviewed the chart and agree that the record accurately reflects my personal performance of the history, physical exam, medical decision making, and the department course for this patient. I have also personally directed, reviewed, and agree with the discharge instructions and disposition. Disposition/Present on Arrival - Present on Arrival Any Indicators Present on Arrival: No History of DVT/PE: No History of Uncontrolled Diabetes: No Urinary Catheter: No History of Decub. Ulcer: No History Surgical Site Infection Following: None - Disposition Have Diagnosis and Disposition been Completed?: Yes Diagnosis: Anxiety Disposition: HOME/ ROUTINE Disposition Time: 19:15 Patient Plan: Discharge Condition: IMPROVED Discharge Instructions (ExitCare): Anxiety, Adult (DC) Additional Instructions: JOSSELINE MARY, thank you for letting us take care of you today. Your provider was Deven Guevara DO and you were treated for ANXIETY. The emergency medical care you received today was directed at your acute symptoms. If you were prescribed any medication, please fill it and take as directed. It may take several days for your symptoms to resolve. Return to the Emergency Department if your symptoms worsen, do not improve, or if you have any other problems. Please contact your doctor or call one of the physicians/clinics you have been referred to that are listed on the Patient Visit Information form that is included in your discharge packet. Bring any paperwork you were given at discharge with you along with any medications you are taking to your follow up visit. Our treatment cannot replace ongoing medical care by a primary care provider outside of the emergency department. Thank you for allowing the [facility] team to be part of your care today. If you had an X-Ray or CT scan: A Radiologist will review the ED reading if any change in treatment is needed we will contact you. If you had a blood, urine, or wound culture: It will take several days for the results, if any change in treatment is needed we will contact you. If you had an STI test: It will take 48 hours for the results. Please call after 1 week if you have not heard back. Prescriptions: Omeprazole Magnesium [Prilosec Otc] 20 mg PO DAILY #30 tablet. Ondansetron ODT [Zofran ODT] 4 mg PO TID #10 odt Referrals: Armani Ricci MD [Primary Care Provider] - Follow up with primary Forms: [facility] (Telugu), WORK NOTE
[2018-06-19 19:36] VITALS: O2SAT 100
[2018-06-19] MEDS ORDERED: Sodium Chloride 0.9% 1,000 ML IV SCH (20:00)
[2018-06-19 20:34] LABS: BASO # 0.01 K/mm3 (0.0-2.0); BASO % 0.1 % (0.0-3.0); EOS % 0.1 % (1.5-5.0); GRAN # 7.48 (1.4-6.5); GRAN % 82.5 % (50.0-68.0); HEMOGLOBIN 8.2 g/dL (12.0-16.0); LYMPH # 1.3 (1.2-3.4); LYMPH % 14.7 % (22.0-35.0); MEAN CELL VOLUME 64.3 fl (80.0-105.0); MEAN CORPUSCULAR HEMOGLOBIN 18.4 pg (25.0-35.0); MEAN CORPUSCULAR HGB CONC 28.7 g/dl (31.0-37.0); MONO # 0.2 (0.1-0.6); MONO % 2.6 % (1.0-6.0); PLATELET COUNT 242 10^3/uL (120.0-450.0); RBC 4.45 10^6/uL (3.5-6.1); RED CELL DISTRIBUTION WIDTH 19.1 % (11.5-14.5); WHITE BLOOD COUNT 9.1 10^3/uL (4.5-11.0)
[2018-06-19 20:45] LABS: ALB/GLOB RATIO 1.2 (1.1-1.8); ALBUMIN 4.4 g/dL (3.0-4.8); ALT/SGPT 18 U/L (7-56); AST/SGOT 24 U/L (14-36); BLOOD UREA NITROGEN 9 mg/dL (7-21); CALCIUM 9.1 mg/dL (8.4-10.5); GFR NON-AFRICAN AMERICAN > 60
[2018-06-19 20:53] LABS: TROPONIN I < 0.01 ng/mL
--- NOTE | 2018-06-19 21:16 | ED PDOC ---
Physical Exam Vital Signs Reviewed: Yes Vital Signs Temp Pulse Resp BP Pulse Ox 06/19/18 19:35 108 H 16 125/87 100 06/19/18 18:42 98 H 18 121/78 99 06/19/18 16:58 97.8 F 106 H 18 123/80 99 06/19/18 16:42 97.8 F 106 H 20 123/80 100 Temperature: Afebrile Blood Pressure: Normal Pulse: Regular Respiratory Rate: Normal Appearance: Positive for: Well-Appearing, Non-Toxic, Comfortable Pain Distress: None Mental Status: Positive for: Alert and Oriented X 3 - Systems Exam Head: Present: Atraumatic, Normocephalic Pupils: Present: PERRL Extroacular Muscles: Present: EOMI Conjunctiva: Present: Normal Mouth: Present: Moist Mucous Membranes Neck: Present: Normal Range of Motion Respiratory/Chest: Present: Clear to Auscultation, Good Air Exchange. No: Respiratory Distress, Accessory Muscle Use Cardiovascular: Present: Regular Rate and Rhythm, Normal S1, S2. No: Murmurs Abdomen: No: Tenderness, Distention, Peritoneal Signs Back: Present: Normal Inspection Upper Extremity: Present: Normal Inspection. No: Cyanosis, Edema Lower Extremity: Present: Normal Inspection. No: Edema Neurological: Present: GCS=15, CN II-XII Intact, Speech Normal Skin: Present: Warm, Dry, Normal Color. No: Rashes Psychiatric: Present: Alert, Oriented x 3, Normal Insight, Normal Concentration Medical Decision Making ED Course and Treatment: 06/19/18 19:45 Upon discharge, pt refused to leave and was requesting to PES. Pt well- appearing, and in no acute distress. 06/19/18 21:25 Pt seen and evaluated by PES marcelle Winston, who discussed case with psychiatrist color television console monitor. Pt psychologically clear for discharge home with outpt f/u at [facility]. 06/19/18 22:20 On re-evaluation, patient feels better and is in no acute distress. Patient is stable for discharge. Patient was instructed to follow up with physician or return if symptoms worsen or new concerning symptoms arise. - Lab Interpretations Lab Results: 06/19/18 20:22 06/19/18 20:22 Lab Results 06/19/18 20:22: WBC 9.1, RBC 4.45, Hgb 8.2 L, Hct 28.6 L, MCV 64.3 L, MCH 18.4 L , MCHC 28.7 L, RDW 19.1 H, Plt Count 242, Gran % 82.5 H, Lymph % (Auto) 14.7 L, [place] % (Auto) 2.6, Eos % (Auto) 0.1 L, Baso % (Auto) 0.1, Gran # 7.48 H, Lymph # (Auto) 1.3, [place] # (Auto) 0.2, Eos # (Auto) 0.0, Baso # (Auto) 0.01 06/19/18 20:22: Sodium 139, Potassium 3.8, Chloride 107, Carbon Dioxide 24, Anion Gap 12, BUN 9, Creatinine 0.7, Est GFR ( Amer) > 60, Est GFR (Non- Af Amer) > 60, Random Glucose 132 H, Calcium 9.1, Total Bilirubin 0.3, AST 24, ALT 18, Alkaline Phosphatase 63, Troponin I < 0.01, Total Protein 8.1, Albumin 4.4, Globulin 3.7, Albumin/Globulin Ratio 1.2 - Medication Orders Current Medication Orders: Sodium Chloride (Sodium Chloride 0.9%) 1,000 mls @ 150 mls/hr IV .Q6H40M HIRAL Discontinued Medications Lorazepam (Ativan) 1 mg PO STAT STA; Protocol Stop: 06/19/18 17:20 Last Admin: 06/19/18 17:38 Dose: 1 mg Disposition/Present on Arrival - Present on Arrival Any Indicators Present on Arrival: No History of DVT/PE: No History of Uncontrolled Diabetes: No Urinary Catheter: No History of Decub. Ulcer: No History Surgical Site Infection Following: None - Disposition Have Diagnosis and Disposition been Completed?: Yes Diagnosis: Anxiety Disposition: HOME/ ROUTINE Disposition Time: 22:30 Condition: IMPROVED Discharge Instructions (ExitCare): Anxiety, Adult (DC) Additional Instructions: JOSSELINE MARY, thank you for letting us take care of you today. Your provider was Deven Guevara DO and you were treated for ANXIETY. The emergency medical care you received today was directed at your acute symptoms. If you were prescribed any medication, please fill it and take as directed. It may take several days for your symptoms to resolve. Return to the Emergency Department if your symptoms worsen, do not improve, or if you have any other problems. Please contact your doctor or call one of the physicians/clinics you have been referred to that are listed on the Patient Visit Information form that is included in your discharge packet. Bring any paperwork you were given at discharge with you along with any medications you are taking to your follow up visit. Our treatment cannot replace ongoing medical care by a primary care provider outside of the emergency department. Thank you for allowing the [facility] team to be part of your care today. If you had an X-Ray or CT scan: A Radiologist will review the ED reading if any change in treatment is needed we will contact you. If you had a blood, urine, or wound culture: It will take several days for the results, if any change in treatment is needed we will contact you. If you had an STI test: It will take 48 hours for the results. Please call after 1 week if you have not heard back. Prescriptions: Omeprazole Magnesium [Prilosec Otc] 20 mg PO DAILY #30 tablet. Ondansetron ODT [Zofran ODT] 4 mg PO TID #10 odt Referrals: Armani Ricci MD [Primary Care Provider] - Follow up with primary Forms: [employer] (Greek), WORK NOTE
[2018-06-19 21:35] LABS: ACETAMINOPHEN < 10.0 ug/ml (10.0-20.0); SALICYLATE < 1 mg/dL (2.0-20.0)
[2018-06-19 21:56] LABS: BARBITURATES, UR NEGATIVE (NEGATIVE); BENZODIAZEPINES, UR NEGATIVE (NEGATIVE); OPIATES, UR NEGATIVE (NEGATIVE); PHENCYCLIDINE, UR NEGATIVE (NEGATIVE)
[2018-06-19 22:16] VITALS: BP 105/50; PULSE 90; RESP 18
--- NOTE | 2018-06-20 08:41 | CARD ---
APPROVED REPORT Date of service: 06/19/2018 EKG Measurement Heart [id number] 130P79 [id number] <Conclusion> Sinus tachycardia Nonspecific T wave abnormality Abnormal ECG
== END 2018-06-19 22:20 | disposition home or self-care (01) ==
LOC: ED 16:42
DX: F41.9 Anxiety disorder, unspecified (principal)
CPT/HCPCS: 80053; 80320; 80324; 80329; 80345; 80346; 80349; 80353; 80358; 80361; 83992; 84484; 85025; 87804; 90791; 93005; 99285; J7030

== ENCOUNTER 2018-06-21 18:19 | Observation (INO) | payer OTHER ==
[2018-06-21 18:20] VITALS: BMI 15.9
[2018-06-21] MEDS ORDERED: Sodium Chloride 0.9% 1,000 ML IV STA (18:45)
[2018-06-21 20:05] LABS: BASO # 0.01 K/mm3 (0.0-2.0); BASO % 0.2 % (0.0-3.0); EOS % 0.5 % (1.5-5.0); GRAN # 4.52 (1.4-6.5); GRAN % 73.7 % (50.0-68.0); HEMOGLOBIN 8.4 g/dL (12.0-16.0); LYMPH # 1.2 (1.2-3.4); LYMPH % 19.2 % (22.0-35.0); MEAN CELL VOLUME 64.1 fl (80.0-105.0); MEAN CORPUSCULAR HEMOGLOBIN 18.1 pg (25.0-35.0); MEAN CORPUSCULAR HGB CONC 28.2 g/dl (31.0-37.0); MONO # 0.4 (0.1-0.6); MONO % 6.4 % (1.0-6.0); PLATELET COUNT 251 10^3/uL (120.0-450.0); RBC 4.65 10^6/uL (3.5-6.1); RED CELL DISTRIBUTION WIDTH 19.1 % (11.5-14.5); WHITE BLOOD COUNT 6.1 10^3/uL (4.5-11.0)
[2018-06-21 20:15] LABS: INR 1.29; PARTIAL THROMBOPLASTIN TIME 29.3 Seconds (25.1-36.5); PROTHROMBIN TIME 14.8 SECONDS (9.4-12.5)
[2018-06-21 20:17] LABS: ALBUMIN 4.6 g/dL (3.0-4.8); BLOOD UREA NITROGEN 10 mg/dL (7-21); CALCIUM 9.3 mg/dL (8.4-10.5); GFR NON-AFRICAN AMERICAN > 60
[2018-06-21 20:18] LABS: ALB/GLOB RATIO 1.2 (1.1-1.8); ALT/SGPT 22 U/L (7-56); AST/SGOT 25 U/L (14-36)
--- NOTE | 2018-06-21 20:20 | ED PDOC ---
Arrival/HPI - General Chief Complaint: Female Genitourinary Time Seen by Provider: 06/21/18 18:43 Historian: Patient - History of Present Illness Narrative History of Present Illness (Text): 06/21/18 20:05 22yr old female with heavy vaginal bleeding and dizziness since today. pt states she has been having on and off palpitations and has been dealing with severe anxiety since november. pt states she developed heavy vaginal bleeding yesterday, using 6 pads per day. pt states she became anxious over the heavy bleeding and started to develop palpitations. pt denies abdominal pain. no vomiting today. pt states she vomited a few days ago. pt states when she gets anxious she develops headache. pt denies fever/chills. no urinary symptoms. no back pain. no other complaints. Symptom Onset: Gradual Symptom Course: Intermittent Past Medical History - Provider Review Nursing Documentation Reviewed: Yes - Travel History Have you recently traveled outside [place] w/in the past 3 mons?: No - Infectious Disease Hx of Infectious Diseases: None - Cardiac Hx Cardiac Disorders: No - Pulmonary Hx Respiratory Disorders: No - Neurological Hx Neurological Disorder: No - HEENT Hx HEENT Disorder: No - Renal Hx Renal Disorder: No - Endocrine/Metabolic Hx Endocrine Disorders: No - Hematological/Oncological Hx Blood Disorders: No - Integumentary Hx Dermatological Disorder: No - Musculoskeletal/Rheumatological Hx Musculoskeletal Disorders: No - Gastrointestinal Hx Gastrointestinal Disorders: No - Genitourinary/Gynecological Hx Genitourinary Disorders: No - Psychiatric Hx Psychophysiologic Disorder: Yes Hx Anxiety: Yes Hx Substance Use: No - Anesthesia Hx Anesthesia: No Hx Anesthesia Reactions: No Hx Malignant Hyperthermia: No Family/Social History - Physician Review Nursing Documentation Reviewed: Yes Family/Social History: Unknown Family HX Smoking Status: Never Smoked Hx Alcohol Use: No Hx Substance Use: No Allergies/Home Meds Allergies/Adverse Reactions: Allergies No Known Allergies Allergy (Verified 06/21/18 18:35) Home Medications: Home Meds Medication Instructions Recorded Confirmed Clonazepam [Klonopin] 0.5 mg PO BID 06/19/18 06/21/18 Review of Systems - Review of Systems Constitutional: absent: Fevers Eyes: absent: Vision Changes, Photophobia, Eye Pain Respiratory: absent: SOB, Cough Cardiovascular: Palpitations. absent: Chest Pain Gastrointestinal: absent: Abdominal Pain, Nausea, Vomiting Genitourinary Female: Vaginal Bleeding. absent: Dysuria, Frequency, Hematuria, Vaginal Discharge Musculoskeletal: absent: Arthralgias, Back Pain, Neck Pain Skin: absent: Rash, Pruritis Neurological: Headache, Dizziness Psychiatric: Anxiety. absent: Depression, Suicidal Ideation Physical Exam Vital Signs Reviewed: Yes Vital Signs Temp Pulse Resp BP Pulse Ox 06/21/18 18:36 98.1 F 131 H 18 123/78 95 Temperature: Afebrile Blood Pressure: Normal Pulse: Tachycardic Respiratory Rate: Normal Appearance: Positive for: Well-Appearing, Non-Toxic, Comfortable Pain Distress: None Mental Status: Positive for: Alert and Oriented X 3 - Systems Exam Head: Present: Atraumatic Mouth: Present: Moist Mucous Membranes Neck: Present: Normal Range of Motion Respiratory/Chest: Present: Clear to Auscultation, Good Air Exchange. No: Respiratory Distress, Accessory Muscle Use Cardiovascular: Present: Regular Rate and Rhythm, Normal S1, S2. No: Murmurs Abdomen: No: Tenderness, Distention, Peritoneal Signs, Rebound, Guarding Genitourinary/Pelvic Exam: Present: Normal External Genitalia, Vaginal Bleeding (minimal vaginal bleeding noted. ), Other (refused internal and speculum examination; chaparoned by Shellie FLORIAN PA student) Back: Present: Normal Inspection Upper Extremity: Present: Normal ROM Lower Extremity: Present: Normal ROM Neurological: Present: GCS=15, Speech Normal Skin: Present: Warm, Dry, Normal Color. No: Rashes Psychiatric: Present: Alert, Oriented x 3 Medical Decision Making ED Course and Treatment: 22yr old female with hx of anxiety presenting multiple times to ER for dizziness and tachycardia. pt with recurrent visits to ER for same complaints. EKG since sinus tachycardia with fusion complexes at 120 bpm normal axis Repeat EKG shows sinus tachycardia at 111 bpm normal axis normal intervals no ST elevations QTC 467 cbc; Hbg; 8.4 CMP; wnl Pt given NS iv bolus. patient initially refused anxiety medications and is now agreeing to take only the same medication that she takes at home occasionally. I've ordered 0.5 mg of clonazepam. Patient only took 0.25mg in ER. 06/21/18 21:[address]; states she had head ct in november and recently had CT of chest and doesnt want any more radiation. pt with vaginal bleeding, currently menstrating. LMP was 2 months ago. UA: + blood, + leukocytes, + 10-15wbcs. small bacteria. 06/22/18 00:09 patient was offered admission to the hospital for further evaluation of her tachycardia dizziness and headaches case discussed with dr. feliz; accepts observational status admission for tachycardia, dizziness, palpitations, anemia. pt with 3 visits in 2 days for similar complaints. consider symptomatic anemia vs anxiety vs Arrhythmia impression: Tachycardia, dizziness, palpitations, anemia Admit observational status to remote telemetry - Medication Orders Current Medication Orders: Discontinued Medications Sodium Chloride (Sodium Chloride 0.9%) 1,000 mls @ 999 mls/hr IV .Q1H1M STA Stop: 06/21/18 19:45 Disposition/Present on Arrival - Present on Arrival Any Indicators Present on Arrival: No History of DVT/PE: No History of Uncontrolled Diabetes: No Urinary Catheter: No History of Decub. Ulcer: No History Surgical Site Infection Following: None - Disposition Have Diagnosis and Disposition been Completed?: Yes Diagnosis: Tachycardia, Palpitations, Dizziness, Anemia Disposition: HOSPITALIZED Disposition Time: 22:00 Patient Plan: Observation Patient Problems: Current Active Problems Problem Status Onset Anemia Acute Dizziness Acute Palpitations Acute Tachycardia Acute Condition: FAIR
[2018-06-21 20:23] LABS: TROPONIN I < 0.01 ng/mL
[2018-06-21 20:26] LABS: URINE BILIRUBIN NEGATIVE (NEGATIVE); URINE BLOOD LARGE (NEGATIVE); URINE GLUCOSE (UA) NEGATIVE (NEGATIVE); URINE LEUKOCYTE ESTERASE SMALL Leu/uL (NEGATIVE); URINE PROTEIN NEGATIVE mg/dL (<30 mg/dL); URINE UROBILINOGEN 0.2 E.U./dL (<1 E.U./dL)
[2018-06-21 20:27] LABS: URINE COLOR LIGHT RED (YELLOW)
[2018-06-21 20:28] LABS: URINE APPEARANCE CLOUDY (CLEAR)
[2018-06-21 20:36] LABS: URINE BACTERIA SMALL (NEG); URINE RBC TNTC /hpf (0-2); URINE WBC 15 - 20 /hpf (0-6)
--- NOTE | 2018-06-22 01:58 | CP.PCM.HP ---
<Deo Davis - Last Filed: 06/22/18 03:05> History of Present Illness - History of Present Illness History of Present Illness: Deo Davis, PGY1 Hospital H&P This is a 22 year old female with PMH of anemia, anxiety and panic attacks presenting to the ED for palpitations, headaches, dizziness and anxiety. This is the third visit this week to the ED for similar symptoms. Patient states she was returning from her PMD office visit today for follow up of anxiety when she began to feel dizzy, had palpitations and developed a headache. Headache is described as B/L located in the frontotemporal region. She states she started her period recently and has been bleeding more than usual. She admits that symptoms are worse during her menstrual cycles and better with tylenol and klonopin. She says she has seen multiple doctors for her symptoms over the last 7 months when symptoms initially began. She does not want imaging done including CT head because patient is concerned about radiation. She says her last CT head done in November 2017 in [place] was unremarkable. She admits to being stressed by college as well as her health and as a result had to withdraw from school. She does not have a Obgyn doctor. She denies CP, SOB, fevers, chills, nausea, vomiting, back pain, abdominal pain, constipation, diarrhea, urinary complaints, numbness, tingling, swelling, recent travel, sickness, trauma and lifestyle changes including weight gain/loss. 12 point ROS noted here, otherwise unremark able. PMD: Dr. Margaret Ricci PMH: anemia, anxiety, panic attacks SH: denies smoking, drinking and drugs. 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 Denies sexual activity Sx: denies FH: HTN All: NKDA Meds: klonopin 0.5mg prn, OCP prn for irregular cycles LMP: last week, cycles are irregular, menses for 7-10 days on average, denies any history of heavy bleeding Present on Admission - Present on Admission Any Indicators Present on Admission: No Past Patient History - Infectious Disease Hx of Infectious Diseases: None - Past Social History Smoking Status: Never Smoked - CARDIAC Hx Cardiac Disorders: No - PULMONARY Hx Respiratory Disorders: No - NEUROLOGICAL Hx Neurological Disorder: No - HEENT Hx HEENT Problems: No - RENAL Hx Chronic Kidney Disease: No - ENDOCRINE/METABOLIC Hx Endocrine Disorders: No - HEMATOLOGICAL/ONCOLOGICAL Hx Blood Disorders: No - INTEGUMENTARY Hx Dermatological Problems: No - MUSCULOSKELETAL/RHEUMATOLOGICAL Hx Musculoskeletal Disorders: No - GASTROINTESTINAL Hx Gastrointestinal Disorders: No - GENITOURINARY/GYNECOLOGICAL Hx Genitourinary Disorders: No - PSYCHIATRIC Hx Psychophysiologic Disorder: Yes Hx Anxiety: Yes Hx Substance Use: No - SURGICAL HISTORY Hx Surgeries: No - ANESTHESIA Hx Anesthesia: No Hx Anesthesia Reactions: No Hx Malignant Hyperthermia: No Meds Allergies/Adverse Reactions: Allergies Allergy/AdvReac Type Severity Reaction Status Date / Time No Known Allergies Allergy Verified 06/21/18 18:35 Physical Exam - Constitutional Appears: No Acute Distress - Head Exam Head Exam: ATRAUMATIC, NORMAL INSPECTION - Eye Exam Eye Exam: EOMI Pupil Exam: PERRL - ENT Exam ENT Exam: Mucous Membranes Moist - Respiratory Exam Respiratory Exam: Clear to Auscultation Bilateral, NORMAL BREATHING PATTERN. absent: Accessory Muscle Use, Wheezes, Respiratory Distress - Cardiovascular Exam Cardiovascular Exam: Tachycardia, +S1, +S2 - GI/Abdominal Exam GI & Abdominal Exam: Normal Bowel Sounds, Soft. absent: Firm, Guarding, Tenderness - Extremities Exam Extremities exam: Positive for: normal inspection, pedal pulses present. Negative for: calf tenderness, pedal edema, tenderness - Neurological Exam Neurological exam: Alert, CN II-XII Intact, Oriented x3 - Skin Skin Exam: Normal Color, Warm Results - Vital Signs Recent Vital Signs: Last Vital Signs Temp 97.9 F 06/22/18 01:05 Pulse 84 06/22/18 01:05 Resp 18 06/22/18 01:05 BP 109/78 06/22/18 01:05 Pulse Ox 100 06/22/18 01:05 - Labs Result Diagrams: 06/21/18 19:48 06/21/18 19:48 Labs: Laboratory Results - last 24 hr 06/21/18 06/21/18 06/21/18 19:48 19:48 19:48 WBC 6.1 D RBC 4.65 Hgb 8.4 L Hct 29.8 L MCV 64.1 L MCH 18.1 L MCHC 28.2 L RDW 19.1 H Plt Count 251 Gran % 73.7 H Lymph % (Auto) 19.2 L [place] % (Auto) 6.4 H Eos % (Auto) 0.5 L Baso % (Auto) 0.2 Gran # 4.52 Lymph # (Auto) 1.2 [place] # (Auto) 0.4 Eos # (Auto) 0.0 Baso # (Auto) 0.01 PT 14.8 H INR 1.29 APTT 29.3 Sodium 140 Potassium 4.0 Chloride 106 Carbon Dioxide 27 Anion Gap 11 BUN 10 Creatinine 0.9 Est GFR ( Amer) > 60 Est GFR (Non-Af Amer) > 60 Random Glucose 113 H Calcium 9.3 Total Bilirubin 0.3 AST 25 ALT 22 Alkaline Phosphatase 62 Lactate Dehydrogenase 320 L Total Creatine Kinase 30 L Troponin I < 0.01 Total Protein 8.6 H Albumin 4.6 Globulin 4.0 Albumin/Globulin Ratio 1.2 Urine Color Urine Appearance Urine pH Ur Specific Mathias Urine Protein Urine Glucose (UA) Urine Ketones Urine Blood Urine Nitrate Urine Bilirubin Urine Urobilinogen Ur Leukocyte Esterase Urine RBC Urine WBC Ur Epithelial Cells Urine Bacteria Blood Type Blood Type Confirm Antibody Screen BBK History Checked 06/21/18 06/21/18 06/21/18 19:50 20:23 20:43 WBC RBC Hgb Hct MCV MCH MCHC RDW Plt Count Gran % Lymph % (Auto) [place] % (Auto) Eos % (Auto) Baso % (Auto) Gran # Lymph # (Auto) [place] # (Auto) Eos # (Auto) Baso # (Auto) PT INR APTT Sodium Potassium Chloride Carbon Dioxide Anion Gap BUN Creatinine Est GFR ( Amer) Est GFR (Non-Af Amer) Random Glucose Calcium Total Bilirubin AST ALT Alkaline Phosphatase Lactate Dehydrogenase Total Creatine Kinase Troponin I Total Protein Albumin Globulin Albumin/Globulin Ratio Urine Color Light red Urine Appearance Cloudy Urine pH 7.0 Ur Specific Mathias 1.010 Urine Protein Negative Urine Glucose (UA) Negative Urine Ketones Negative Urine Blood Large H Urine Nitrate Negative Urine Bilirubin Negative Urine Urobilinogen 0.2 Ur Leukocyte Esterase Small H Urine RBC Tntc Urine WBC 15 - 20 Ur Epithelial Cells 3 - 4 Urine Bacteria Small Blood Type O NEGATIVE Blood Type Confirm O NEGATIVE Antibody Screen Negative BBK History Checked No verified bt Assessment & Plan - Assessment and Plan (Free Text) Assessment: This is a 22 year old female with PMH of anemia, anxiety and panic attacks presenting to the ED for palpitations, headaches, dizziness and anxiety. Plan: Anemia -microcytic, at baseline -iron studies pending -type and screen -monitor H/H -admits to increased bleeding in current menstrual cycle -recommend Obgyn referral upon discharge -NS @ 100cc Palpitations, tachycardia -TSH, T4 pending -d-dimer pending -EKG AM -initial EKG showed sinus tachycardia, no ST changes -initial troponin was <0.01 -unlikely cardiac in nature, consider holter monitor if symptoms uncontrolled Headaches -patient refusing CT head at this time -previous CT head in November 2017 was normal per patient -tylenol prn Hx of anxiety, panic attacks -xanax 0.5mg BID -psych on consult, Dr. Emanuel PPX with SCD and pepcid Regular Diet Patient seen and case discussed with attending, Dr. Agudelo <Effie Agudelo - Last Filed: 06/25/18 02:09> Results - Vital Signs Recent Vital Signs: Last Vital Signs Temp 98.2 F 06/22/18 17:00 Pulse 73 06/22/18 17:00 Resp 18 06/22/18 17:00 BP 112/71 06/22/18 17:00 Pulse Ox 99 06/22/18 17:00 - Labs Result Diagrams: 06/22/18 05:30 06/22/18 05:30 Labs: Laboratory Results - last 24 hr 06/22/18 12:46 POC Glucose (mg/dL) 100 Attending/Attestation - Attestation I have personally seen and examined this patient.: Yes I have fully participated in the care of the patient.: Yes I have reviewed all pertinent clinical information: Yes
[2018-06-22] MEDS ORDERED: Sodium Chloride 0.9% 1,000 ML IV SCH (02:30)
[2018-06-22 06:11] LABS: BASO # 0.02 K/mm3 (0.0-2.0); BASO % 0.4 % (0.0-3.0); EOS % 0.7 % (1.5-5.0); GRAN # 3.29 (1.4-6.5); GRAN % 60.6 % (50.0-68.0); HEMOGLOBIN 7.5 g/dL (12.0-16.0); LYMPH # 1.7 (1.2-3.4); LYMPH % 31.3 % (22.0-35.0); MEAN CELL VOLUME 64.1 fl (80.0-105.0); MEAN CORPUSCULAR HEMOGLOBIN 18.3 pg (25.0-35.0); MEAN CORPUSCULAR HGB CONC 28.5 g/dl (31.0-37.0); MONO # 0.4 (0.1-0.6); PLATELET COUNT 216 10^3/uL (120.0-450.0); RED CELL DISTRIBUTION WIDTH 19.2 % (11.5-14.5); WHITE BLOOD COUNT 5.4 10^3/uL (4.5-11.0)
[2018-06-22 06:45] LABS: FREE T4 0.62 ng/dL (0.78-2.19)
[2018-06-22 07:09] LABS: ALB/GLOB RATIO 1.2 (1.1-1.8); ALBUMIN 3.8 g/dL (3.0-4.8); ALT/SGPT 17 U/L (7-56); AST/SGOT 22 U/L (14-36); BLOOD UREA NITROGEN 7 mg/dL (7-21); CALCIUM 8.7 mg/dL (8.4-10.5); GFR NON-AFRICAN AMERICAN > 60
[2018-06-22] MEDS ORDERED: Iodixanol 320 MG/ML 100 ML BOTTLE IV ONE (07:21)
[2018-06-22 07:37] LABS: IRON 19 ug/dL (45-180); TOTAL IRON BINDING CAPACITY 336 ug/dL (265-497)
[2018-06-22 07:38] LABS: % IRON SATURATION 6 % (20-55)
--- NOTE | 2018-06-22 09:13 | CARD ---
APPROVED REPORT Date of service: 06/22/2018 EKG Measurement Heart [id number] [place] 118P64 [id number] <Conclusion> Normal sinus rhythm Normal Electrocardiogram
--- NOTE | 2018-06-22 09:14 | CARD ---
APPROVED REPORT Date of service: 06/21/2018 EKG Measurement Heart [id number] [place] 180P63 [id number] <Conclusion> Sinus tachycardia Otherwise normal ECG
--- NOTE | 2018-06-22 09:15 | CARD ---
APPROVED REPORT Date of service: 06/21/2018 EKG Measurement Heart [id number] 126P56 [id number] <Conclusion> Sinus tachycardia Baseline artifact Otherwise normal ECG
--- NOTE | 2018-06-22 16:41 | CP.PCM.DIS ---
<Mando Wang - Last Filed: 06/22/18 16:32> Provider - Provider Date of Admission: 06/22/18 01:01 Attending physician: José Webb MD Primary care physician: Armani Ricci MD Consults: 06/22/18 02:44 Psychiatry Consult Routine Comment: Consulting Provider: Giuliano Emanuel Consulting Physician: Giuliano Emanuel Reason for Consult: uncontrolled anxiety, panick attacks Time Spent in preparation of Discharge (in minutes): 45 Diagnosis - Discharge Diagnosis (1) Anemia Status: Acute Priority: Medium (2) Dizziness Status: Acute Priority: Medium (3) Palpitations Status: Acute Priority: Medium (4) Tachycardia Status: Acute Priority: Medium Hospital Course - Lab Results Lab Results: Most Recent Lab Values WBC 5.4 10^3/uL (4.5-11.0) 06/22/18 05:30 RBC 4.10 10^6/uL (3.5-6.1) 06/22/18 05:30 Hgb 7.5 g/dL (12.0-16.0) L 06/22/18 05:30 Hct 26.3 % (36.0-48.0) L 06/22/18 05:30 MCV 64.1 fl (80.0-105.0) L 06/22/18 05:30 MCH 18.3 pg (25.0-35.0) L 06/22/18 05:30 MCHC 28.5 g/dl (31.0-37.0) L 06/22/18 05:30 RDW 19.2 % (11.5-14.5) H 06/22/18 05:30 Plt Count 216 10^3/uL (120.0-450.0) 06/22/18 05:30 Gran % 60.6 % (50.0-68.0) 06/22/18 05:30 Lymph % (Auto) 31.3 % (22.0-35.0) 06/22/18 05:30 [place] % (Auto) 7.0 % (1.0-6.0) H 06/22/18 05:30 Eos % (Auto) 0.7 % (1.5-5.0) L 06/22/18 05:30 Baso % (Auto) 0.4 % (0.0-3.0) 06/22/18 05:30 Gran # 3.29 (1.4-6.5) 06/22/18 05:30 Lymph # (Auto) 1.7 (1.2-3.4) 06/22/18 05:30 [place] # (Auto) 0.4 (0.1-0.6) 06/22/18 05:30 Eos # (Auto) 0.0 (0.0-0.7) 06/22/18 05:30 Baso # (Auto) 0.02 K/mm3 (0.0-2.0) 06/22/18 05:30 PT 14.8 SECONDS (9.4-12.5) H 06/21/18 19:48 INR 1.29 06/21/18 19:48 APTT 29.3 Seconds (25.1-36.5) 06/21/18 19:48 D-Dimer, Quantitative 740 ng/mlDDU (0-243) H 06/22/18 05:30 Sodium 139 mmol/L (132-148) 06/22/18 05:30 Potassium 3.7 mmol/L (3.6-5.0) 06/22/18 05:30 Chloride 107 mmol/L (98-107) 06/22/18 05:30 Carbon Dioxide 26 mmol/L (21-33) 06/22/18 05:30 Anion Gap 10 (10-20) 06/22/18 05:30 BUN 7 mg/dL (7-21) 06/22/18 05:30 Creatinine 0.6 mg/dl (0.7-1.2) L 06/22/18 05:30 Est GFR ( Amer) > 60 06/22/18 05:30 Est GFR (Non-Af Amer) > 60 06/22/18 05:30 Random Glucose 100 mg/dL (70-110) 06/22/18 05:30 Calcium 8.7 mg/dL (8.4-10.5) 06/22/18 05:30 Phosphorus 3.0 mg/dL (2.5-4.5) 06/22/18 05:30 Magnesium 2.0 mg/dL (1.7-2.2) 06/22/18 05:30 Iron 19 ug/dL (45-180) L 06/22/18 05:30 TIBC 336 ug/dL (265-497) 06/22/18 05:30 % Saturation 6 % (20-55) L 06/22/18 05:30 Total Bilirubin 0.2 mg/dL (0.2-1.3) 06/22/18 05:30 AST 22 U/L (14-36) 06/22/18 05:30 ALT 17 U/L (7-56) 06/22/18 05:30 Alkaline Phosphatase 53 U/L (38-126) 06/22/18 05:30 Lactate Dehydrogenase 320 U/L (333-699) L 06/21/18 19:48 Total Creatine Kinase 30 U/L (35-230) L 06/21/18 19:48 Troponin I < 0.01 ng/mL 06/21/18 19:48 Total Protein 6.9 g/dL (5.8-8.3) 06/22/18 05:30 Albumin 3.8 g/dL (3.0-4.8) 06/22/18 05:30 Globulin 3.2 gm/dL 06/22/18 05:30 Albumin/Globulin Ratio 1.2 (1.1-1.8) 06/22/18 05:30 Free T4 0.62 ng/dL (0.78-2.19) L 06/22/18 05:30 TSH 3rd Generation 4.25 mIU/mL (0.46-4.68) 06/22/18 05:30 Urine Color Light red (YELLOW) 06/21/18 19:50 Urine Appearance Cloudy (CLEAR) 06/21/18 19:50 Urine pH 7.0 (4.7-8.0) 06/21/18 19:50 Ur Specific [place] 1.010 (1.005-1.035) 06/21/18 19:50 Urine Protein Negative mg/dL (<30 mg/dL) 06/21/18 19:50 Urine Glucose (UA) Negative mg/dL (NEGATIVE) 06/21/18 19:50 Urine Ketones Negative mg/dL (NEGATIVE) 06/21/18 19:50 Urine Blood Large (NEGATIVE) H 06/21/18 19:50 Urine Nitrate Negative (NEGATIVE) 06/21/18 19:50 Urine Bilirubin Negative (NEGATIVE) 06/21/18 19:50 Urine Urobilinogen 0.2 E.U./dL (<1 E.U./dL) 06/21/18 19:50 Ur Leukocyte Esterase Small Gurinder/uL (NEGATIVE) H 06/21/18 19:50 Urine RBC Tntc /hpf (0-2) 06/21/18 19:50 Urine WBC 15 - 20 /hpf (0-6) 06/21/18 19:50 Ur Epithelial Cells 3 - 4 /hpf (0-5) 06/21/18 19:50 Urine Bacteria Small (NEG) 06/21/18 19:50 Blood Type O NEGATIVE 06/21/18 20:23 Blood Type Confirm O NEGATIVE 06/21/18 20:43 Antibody Screen Negative 06/21/18 20:23 BBK History Checked No verified bt 06/21/18 20:23 - Hospital Course Hospital Course: PGY1 Hospital Course and Discharge Summary for Dr. Lord This is a 22 year old female with PMH of anemia, anxiety and panic attacks presenting to the ED for palpitations, headaches, dizziness and anxiety. This is the third visit this week to the ED for similar symptoms. Patient states she was returning from her PMD office visit for follow up of anxiety when she began to feel dizzy, had palpitations and developed a headache. Of note, Patient stated she started her period recently and has been bleeding more than usual. She admitted that symptoms are worse during her menstrual cycles and better with tylenol and klonopin. Patient reports she has been seen by multiple doctors for her symptoms over the last 7 months when symptoms initially began. Patient stated from the beginning of the admission that she did not want imaging done including CT head because patient is concerned about radiation. Patient reports her last CT head done in November 2017 in [place] was unremarkable. Furthermore Patient admitted to being stressed by college, recently withdrew from [employer] as a 4th year as a result of her health condition. Patient states she was seen by multiple Obgyn physicians, however does not reveal the names of her physicians. Patient added that she doesn't want to go back to her previous physicians because "they weren't good for me." Patient refused CT head. Patient refused abdominal/pelvic CT. Patient states she has anxiety. Psychiatry was consulted (Dr. Emanuel). Was treated with xanax PRN and IV iron infusion. On day of discharge, Patient was hemodynamically stable and medically optimized for discharge. Patient states she would like to be discharged in order to see her other doctor as an outpatient. Patient was given detailed discharge instructions both verbally and written and was explained to Patient at the level of Patient's comprehension. Patient both understands and agrees to all discharge instructions. Please see chart for more detailed summary. Patient seen and case discussed in detail with Dr. Pop Wang PGY1 Discharge Exam - Additional Findings Additional findings: - Constitutional Appears: No Acute Distress - Head Exam Head Exam: ATRAUMATIC, NORMAL INSPECTION - Eye Exam Eye Exam: EOMI Pupil Exam: PERRL - ENT Exam ENT Exam: Mucous Membranes Moist - Respiratory Exam Respiratory Exam: Clear to Auscultation Bilateral, NORMAL BREATHING PATTERN. absent: Accessory Muscle Use, Wheezes, Respiratory Distress - Cardiovascular Exam Cardiovascular Exam: Tachycardia, +S1, +S2 - GI/Abdominal Exam GI & Abdominal Exam: Normal Bowel Sounds, Soft. absent: Firm, Guarding, Tenderness - Extremities Exam Extremities exam: Positive for: normal inspection, pedal pulses present. Negative for: calf tenderness, pedal edema, tenderness - Neurological Exam Neurological exam: Alert, CN II-XII Intact, Oriented x3 - Skin Skin Exam: Normal Color, Warm Discharge Plan - Discharge Medications Prescriptions: Ferrous Sulfate [Feosol] 324 mg PO TID #90 ect - Follow Up Plan Condition: FAIR Disposition: HOME/ ROUTINE Instructions: Heavy Periods (DC), Normocytic Normochromic Anemia (DC) Additional Instructions: Please follow up with primary medical doctor in 3-5 days. Please follow up with viner operator in 3-5 days. Recommend to take over the counter Iron pills as outpatient for anemia. Continue to take antidepressant and anti-anxiety. Follow up with [facility] as outpatient. If your symptoms worsen, please go the nearest emergency department. Referrals: Armani Ricci MD [Primary Care Provider] - <Alisia Lord - Last Filed: 06/24/18 17:21> Provider - Provider Date of Admission: 06/22/18 01:01 Attending physician: José Webb MD Primary care physician: Armani Ricci MD Consults: 06/22/18 02:44 Psychiatry Consult Routine Comment: Consulting Provider: Giuliano Emanuel Consulting Physician: Giuliano Emanuel Reason for Consult: uncontrolled anxiety, panick attacks Hospital Course - Lab Results Lab Results: Micro Results 06/22/18 00:38 Urine,Clean Catch Urine Culture - Final 10-50,000 CFU/ML. MULTIPLE SPECIES. PROBABLE CONTAMINATION. Most Recent Lab Values WBC 5.4 10^3/uL (4.5-11.0) 06/22/18 05:30 RBC 4.10 10^6/uL (3.5-6.1) 06/22/18 05:30 Hgb 7.5 g/dL (12.0-16.0) L 06/22/18 05:30 Hct 26.3 % (36.0-48.0) L 06/22/18 05:30 MCV 64.1 fl (80.0-105.0) L 06/22/18 05:30 MCH 18.3 pg (25.0-35.0) L 06/22/18 05:30 MCHC 28.5 g/dl (31.0-37.0) L 06/22/18 05:30 RDW 19.2 % (11.5-14.5) H 06/22/18 05:30 Plt Count 216 10^3/uL (120.0-450.0) 06/22/18 05:30 Gran % 60.6 % (50.0-68.0) 06/22/18 05:30 Lymph % (Auto) 31.3 % (22.0-35.0) 06/22/18 05:30 [place] % (Auto) 7.0 % (1.0-6.0) H 06/22/18 05:30 Eos % (Auto) 0.7 % (1.5-5.0) L 06/22/18 05:30 Baso % (Auto) 0.4 % (0.0-3.0) 06/22/18 05:30 Gran # 3.29 (1.4-6.5) 06/22/18 05:30 Lymph # (Auto) 1.7 (1.2-3.4) 06/22/18 05:30 [place] # (Auto) 0.4 (0.1-0.6) 06/22/18 05:30 Eos # (Auto) 0.0 (0.0-0.7) 06/22/18 05:30 Baso # (Auto) 0.02 K/mm3 (0.0-2.0) 06/22/18 05:30 PT 14.8 SECONDS (9.4-12.5) H 06/21/18 19:48 INR 1.29 06/21/18 19:48 APTT 29.3 Seconds (25.1-36.5) 06/21/18 19:48 D-Dimer, Quantitative 740 ng/mlDDU (0-243) H 06/22/18 05:30 Sodium 139 mmol/L (132-148) 06/22/18 05:30 Potassium 3.7 mmol/L (3.6-5.0) 06/22/18 05:30 Chloride 107 mmol/L (98-107) 06/22/18 05:30 Carbon Dioxide 26 mmol/L (21-33) 06/22/18 05:30 Anion Gap 10 (10-20) 06/22/18 05:30 BUN 7 mg/dL (7-21) 06/22/18 05:30 Creatinine 0.6 mg/dl (0.7-1.2) L 06/22/18 05:30 Est GFR ( Amer) > 60 06/22/18 05:30 Est GFR (Non-Af Amer) > 60 06/22/18 05:30 Random Glucose 100 mg/dL (70-110) 06/22/18 05:30 Calcium 8.7 mg/dL (8.4-10.5) 06/22/18 05:30 Phosphorus 3.0 mg/dL (2.5-4.5) 06/22/18 05:30 Magnesium 2.0 mg/dL (1.7-2.2) 06/22/18 05:30 Iron 19 ug/dL (45-180) L 06/22/18 05:30 TIBC 336 ug/dL (265-497) 06/22/18 05:30 % Saturation 6 % (20-55) L 06/22/18 05:30 Total Bilirubin 0.2 mg/dL (0.2-1.3) 06/22/18 05:30 AST 22 U/L (14-36) 06/22/18 05:30 ALT 17 U/L (7-56) 06/22/18 05:30 Alkaline Phosphatase 53 U/L (38-126) 06/22/18 05:30 Lactate Dehydrogenase 320 U/L (333-699) L 06/21/18 19:48 Total Creatine Kinase 30 U/L (35-230) L 06/21/18 19:48 Troponin I < 0.01 ng/mL 06/21/18 19:48 Total Protein 6.9 g/dL (5.8-8.3) 06/22/18 05:30 Albumin 3.8 g/dL (3.0-4.8) 06/22/18 05:30 Globulin 3.2 gm/dL 06/22/18 05:30 Albumin/Globulin Ratio 1.2 (1.1-1.8) 06/22/18 05:30 Free T4 0.62 ng/dL (0.78-2.19) L 06/22/18 05:30 TSH 3rd Generation 4.25 mIU/mL (0.46-4.68) 06/22/18 05:30 Urine Color Light red (YELLOW) 06/21/18 19:50 Urine Appearance Cloudy (CLEAR) 06/21/18 19:50 Urine pH 7.0 (4.7-8.0) 06/21/18 19:50 Ur Specific [place] 1.010 (1.005-1.035) 06/21/18 19:50 Urine Protein Negative mg/dL (<30 mg/dL) 06/21/18 19:50 Urine Glucose (UA) Negative mg/dL (NEGATIVE) 06/21/18 19:50 Urine Ketones Negative mg/dL (NEGATIVE) 06/21/18 19:50 Urine Blood Large (NEGATIVE) H 06/21/18 19:50 Urine Nitrate Negative (NEGATIVE) 06/21/18 19:50 Urine Bilirubin Negative (NEGATIVE) 06/21/18 19:50 Urine Urobilinogen 0.2 E.U./dL (<1 E.U./dL) 06/21/18 19:50 Ur Leukocyte Esterase Small Gurinder/uL (NEGATIVE) H 06/21/18 19:50 Urine RBC Tntc /hpf (0-2) 06/21/18 19:50 Urine WBC 15 - 20 /hpf (0-6) 06/21/18 19:50 Ur Epithelial Cells 3 - 4 /hpf (0-5) 06/21/18 19:50 Urine Bacteria Small (NEG) 06/21/18 19:50 Blood Type O NEGATIVE 06/21/18 20:23 Blood Type Confirm O NEGATIVE 06/21/18 20:43 Antibody Screen Negative 06/21/18 20:23 BBK History Checked No verified bt 06/21/18 20:23 Attending/Attestation - Attestation I have personally seen and examined this patient.: Yes I have fully participated in the care of the patient.: Yes I have reviewed all pertinent clinical information, including history, physical exam and plan: Yes Notes (Text): 06/24/18 17:18 attending note; patient seen and examined with resident. Patient is a 22 year old female with PMH of anemia, anxiety and panic attacks presenting to the ED for palpitations, headaches, dizziness and anxiety. This is the third visit this week to the ED for similar symptoms. 1.Chronic anemia; mostly secondary to [employer] blood loss. Patient is taking by mouth iron at home. Not tolerating very well due to constipation. Currently planning to get IV iron as outpatient. IV iron ordered. Advised to follow up with viner operator as outpatient. 2. Panic attacks; patient takes Xanax at home. advised to follow-up with psy chiatrist for further care. mildly elevated d-dimer. Patient refused CT angiogram. Case discussed with patient's mother in detail. Patient is willing to follow up with PMD, hematology and psychiatrist as outpatient. advised to follow-up with repeat blood work Within 3-[address] Em Lomeli the diagnosis, follow-up plan discussed with patient and patient's mother in detail.
[2018-06-22 17:01] VITALS: BP 112/71; PULSE 73; RESP 18; TEMP 98.2; O2SAT 99
== END 2018-06-22 17:59 | disposition home or self-care (01) ==
LOC: ED 18:19 → ERH 06-22 01:01 → 3RSO 06-22 02:56
PROVIDERS: ADMIT Internal Medicine; ATTEND Internal Medicine
DX: D64.9 Anemia, unspecified (principal); R42 Dizziness and giddiness; R00.2 Palpitations; R00.0 Tachycardia, unspecified; F41.0 Panic disorder [episodic paroxysmal anxiety]; Z82.49 Family history of ischemic heart disease and other diseases of the circulatory system; N93.9 Abnormal uterine and vaginal bleeding, unspecified; Z53.20 Procedure and treatment not carried out because of patient's decision for unspecified reasons
CPT/HCPCS: 36415; 80053; 81001; 82550; 83540; 83550; 83615; 83735; 84100; 84439; 84443; 84484; 85025; 85378; 85610; 85730; 86850; 86900; 87086; 93005; 96365; 99285; G0378; J1756; J7030